=== PATIENT | female | born 1995 | race Caucasian/White ===

== ENCOUNTER 2017-05-23 21:21 | Emergency (ER) | payer BC ==
[2017-05-23 21:26] VITALS: BP 140/65; PULSE 100; RESP 18; TEMP 99; O2SAT 95
--- NOTE | 2017-05-23 21:35 | EDPHY ---
H & P Stated Complaint: Kidney Infection Time Seen by Provider: 05/23/17 21:35 - Personal History LMP (Females 10-55): IUD In Place Current Tetanus Diphtheria and Acellular Pertussis (TDAP): Yes - Medical/Surgical History Hx Asthma: No Hx Chronic Respiratory Disease: No Hx Diabetes: No Hx Cardiac Disease: No Hx Renal Disease: No Hx Cirrhosis: No Hx Alcoholism: No Hx HIV/AIDS: No Hx Splenectomy or Spleen Trauma: No Other PMH: depression - Social History Smoking Status: Never smoked Constitutional: Initial Vital Signs Temperature (C) 37.2 C 05/23/17 21:24 Heart Rate 100 05/23/17 21:24 Respiratory Rate 18 05/23/17 21:24 Blood Pressure 140/65 H 05/23/17 21:24 O2 Sat (%) 95 05/23/17 21:24 O2 Delivery Mode Room Air Allergies/Adverse Reactions: No Known Allergies Allergy (Unverified 05/23/17 21:23) Home Medications: Medication Instructions Recorded Cephalexin [Keflex (RX)] 500 mg PO TID #30 cap 05/23/17 Phenazopyridine HCl [Pyridium] 200 mg PO TID #6 tab 05/23/17 Wellbutrin Xl 05/23/17 Medical Decision Making ED Course/Re-evaluation: CHIEF COMPLAINT: Bilateral flank pain HISTORY OF PRESENT ILLNESS: The patient is a 21 y/o female complaining of bilateral flank onset last week. Last week she was diagnosed with a UTI at [facility] after experiencing dysuria and polyuria. She started taking Macrobid and had an improvement in her urinary symptoms. However, she started to have bilateral flank pain. Today she also felt light headed. She went back to [facility] today and diagnosed with a kidney infection. She was then prescribed 500mg BID PO Ciprofloxacin in addition to her Macrobid. No chest pain , shortness of breath, abdominal pain, bowel complaints, fever. REVIEW OF SYSTEMS: A 10 point review of systems was performed and is negative with the exception of the elements mentioned in the history of present illness. PHYSICAL EXAM: HR, BP, O2 Sat, RR. Temp noted General Appearance: Alert, well hydrated, appropriate, and non-toxic appearing. Head: Atraumatic without scalp tenderness or obvious injury Eyes: Pupils equal, round, reactive to light and accommodation, EOMI, no trauma , no injection. Ears: Clear bilaterally, no perforation, normal landmarks Nose: Atraumatic, no rhinorrhea, clear. Throat: Mucus membranes moist. Neck: Supple, nontender, no lymphadenopathy. Respiratory: No retractions, no distress, no wheezes, and no accessory muscle use. Lungs are clear to auscultation bilaterally. Cardiovascular: Regular rate and rhythm, no murmurs, rubs, or gallops. Good capillary refill all extremities. Gastrointestinal: Abdomen is soft, nontender, non-distended, no masses, no rebound, no guarding, no peritoneal signs. Back: Bilateral flank tenderness to palpation Musculoskeletal: Normal active ROM of all extremities, atraumatic. Neurological: Alert, appropriate, and interactive. Non-focal neuro Skin: No rashes, good turgor, no nodules on palpation. Past medical history: Depression Past surgical history: Denies Family history: Denies Social history: Student at , single DIFFERENTIAL DIAGNOSIS: The differential diagnosis for the patient's bilateral flank pain included but was not limited to pyelonephritis, pneumonia, urinary tract infection, viral syndrome, meningitis, and sepsis. MEDICAL DECISION MAKING: The patient is a 21 y/o female presenting with bilateral flank tenderness secondary to a UTI and subsequent kidney infection, onset last week. She has been taking Macrobid and Ciprofloxacin for her UTI and kidney infection. Patient 's symptoms are consistent with acute pyelonephritis. 1gm IV ceftriaxone administered. Reassessed patient and discussed plan for Keflex and Pyridium prescription. Return precautions provided; patient is comfortable with this plan. Departure - Departure Disposition: Home, Routine, Self-Care Clinical Impression: Acute pyelonephritis Condition: Good Instructions: Urinary Tract Infection in Women (ED), Kidney Infection (ED) Additional Instructions: 1. Take Keflex as prescribed; make sure to finish the entire prescription even if your symptoms improve. 2. Take Pyridium as prescribed. 3. Follow-up with your primary doctor within 72 hours. 4. Return to the Emergency Department for fever, worsening pain, flank pain or failure to improve within 72 hours. Referrals: LONI QUIROZ [Other] - As per Instructions Prescriptions: Cephalexin [Keflex (RX)] 500 mg PO TID #30 cap Phenazopyridine HCl [Pyridium] 200 mg PO TID #6 tab Report Scribed for: Waqas Aceves Report Scribed by: Afshan Christensen Date of Report: 05/23/17 Time of Report: 21:36
[2017-05-23] MEDS ORDERED: cefTRIAXone 2 GM in STERILE WATER INJ 20 ML IV ONE (21:43)
== END 2017-05-23 23:04 | disposition home or self-care (01) ==
DX: N10 Acute pyelonephritis (principal)
CPT/HCPCS: 96374; J0696